=== PATIENT | male | born 1985 | race Caucasian/White ===

== ENCOUNTER 2016-09-03 18:37 | Emergency (ER) | payer OTHER ==
[2016-09-03] MEDS ORDERED: LIDOCAINE 1% INJ-PF (10 MG/ML) 30 ML SDV INJ ONE (20:24)
[2016-09-03] MEDS ORDERED: CEPHALEXIN 500 MG CAPSULE PO ONE (21:13)
[2016-09-03] MEDS ORDERED: HYDROCODONE/ACETAMINOPHEN 5-325 MG 6 TAB/DSPK PO PRN (21:14)
--- NOTE | 2016-09-03 21:17 | ER Document Report ---
HPI - HPI Patient complains to provider of: finger laceration Onset: Just prior to arrival Onset/Duration: Sudden Quality of pain: Achy Pain Level: 4 Context: Patient was using a handsaw to cut plywood and slipped cutting his left second finger. Patient denies any loss of mobility to finger. Patient is right-hand dominant Associated Symptoms: Other - Finger laceration Exacerbated by: Movement Relieved by: Denies Similar symptoms previously: Yes Recently seen / treated by doctor: No - ROS ROS below otherwise negative: Yes Systems Reviewed and Negative: Yes All other systems reviewed and negative - CONSTITUTIONAL Constitutional: DENIES: Fever - NEURO Neurology: DENIES: Weakness - MUSCULOSKELETAL Musculoskeletal: REPORTS: Extremity pain - Left second finger. DENIES: Swelling - DERM Skin Color: Normal, [place] Skin Problems: Laceration Past Medical History - General Information source: Patient - Social History Smoking Status: Never Smoker Chew tobacco use (# tins/day): Yes Frequency of alcohol use: None Drug Abuse: None Occupation: none Lives with: Family Family History: Reviewed & Not Pertinent Renal/ Medical History: Denies: Hx Peritoneal Dialysis Psychiatric Medical History: Reports: Hx Post Traumatic Stress Disorder Traumatic Medical History: Reports: Hx Traumatic Brain Injury Past Surgical History: Reports: Other - Ganglion cyst Vertical Provider Document - CONSTITUTIONAL Agree With Documented VS: Yes Exam Limitations: No Limitations General Appearance: WD/WN, No Apparent Distress - INFECTION CONTROL TRAVEL OUTSIDE OF THE [place] IN LAST 30 DAYS: No - HEENT HEENT: Atraumatic, Normocephalic - NECK Neck: Normal Inspection - RESPIRATORY Respiratory: No Respiratory Distress O2 Sat by Pulse Oximetry: 97 - CARDIOVASCULAR Pulses: Normal: Radial - MUSCULOSKELETAL/EXTREMETIES Musculoskeletal/Extremeties: MAEW, FROM, Tender - Left second finger tenderness - NEURO Level of Consciousness: Awake, Alert, Appropriate Motor/Sensory: No Motor Deficit - DERM Integumentary: Warm, Dry, Laceration - 3.5 cm irregular linear laceration to radial aspect of left second finger overlying the proximal phalanx, no obvious tendon deficit Course - Vital Signs Vital signs: Temp Pulse Resp BP Pulse Ox 82 18 163/81 H 97 09/03/16 18:50 09/03/16 18:50 09/03/16 18:50 09/03/16 18:50 - Diagnostic Test Radiology reviewed: Image reviewed, Reports reviewed Procedures - Laceration/Wound Repair Left 2nd digit Wound length (cm): 3.5 Wound's Depth, Shape: Linear, Irregular Laceration pre-procedure: Other - Chlorhexidine Anesthetic type: 1% Lidocaine Wound explored: Clean, No foreign body removed Wound Debrided: Minimal Wound Repaired With: Sutures Suture Size/Type: 5:0, Nylon Number of Sutures: 8 Layer Closure?: No Post-procedure wound care: Sterile dressing applied Post-procedure NV exam normal: Yes Complications: No Discharge - Discharge Clinical Impression: Elevated blood pressure reading Finger laceration Qualifiers: Encounter type: initial encounter Qualified Code(s): S61.219A - Laceration without foreign body of unspecified finger without damage to nail, initial encounter Condition: Stable Disposition: HOME, SELF-CARE Instructions: Oral Narcotic Medication ([facility]), Prophylactic Antibiotic ([facility]), Laceration Care ([facility]) Additional Instructions: Return immediately for any new or worsening symptoms, or any signs of infection including redness, streaks, fever, drainage, increased pain, or any concerning symptoms Followup with your primary care provider, call tomorrow to make a followup appointment Suture removal in 10 days Follow-up with Dr. Sorto for further evaluation hand laceration. Call your primary doctor tomorrow to make the referral Prescriptions: Cephalexin Monohydrate [Keflex 500 mg Capsule] 500 mg PO Q6H 5 Days Forms: Elevated Blood Pressure Referrals: HEATHER SORTO DO [ACTIVE STAFF] - Follow up in 3-5 days
[2016-09-03 22:16] VITALS: BP 154/87
== END 2016-09-03 22:18 | disposition home or self-care (01) ==
LOC: ER 18:37
PROC: 0HQGXZZ Repair Left Hand Skin, External Approach (ICD-10-PCS; principal; 2016-09-03)
DX: S61.211A Laceration without foreign body of left index finger without damage to nail, initial encounter (principal); W27.0XXA Contact with workbench tool, initial encounter; Y93.H3 Activity, building and construction; Z87.820 Personal history of traumatic brain injury
CPT/HCPCS: 12002; 99283; 73140; J3490